=== PATIENT | male | born 1970 | race African-American/Black ===

== ENCOUNTER 2023-12-31 14:14 | Emergency (ER) | payer MEDICAID, OTHER ==
[~2023-12-31] VITALS: Ht 182.9 cm; Wt 97.4 kg
[2023-12-31 15:06] VITALS: BP 138/86; PULSE 67; RESP 16; TEMP 98.2; O2SAT 100
--- NOTE | 2023-12-31 15:06 | ED.PDOC ---
History of Present Illness HPI Comments 53-year-old male patient presents to the clinic for cough and congestion x2 days. Patient reports body aches. Patient reports nausea. Patient reports decreased appetite. Patient denies any fevers. Patient denies any throat pain. Patient denies any ear pain. Patient denies any shortness of breath or diff iculty breathing. Patient is sitting up in chair. Patient appears comfortable. Respirations are even and unlabored Chief Complaint: Flu like Time Seen by MD: 14:44 Reviewed Notes: Nurses Notes, Medications Allergies: Coded Allergies: NO KNOWN ALLERGIES (Unverified , 12/31/23) Home Meds Active Scripts Ibuprofen (Ibuprofen) 600 Mg Tab, 1 TAB PO Q6HP PRN for 30 Days, #120 TAB 0 Refills Prov:KALANI MUÑIZ [facility] 12/31/23 [id number] (Bromphen/Pseudoephedrine 30-2-10 mg/5Ml) 1 Syp Syp, 10 ML PO Q6HP PRN for 10 Days, #400 ML 0 Refills Prov:KALANI MUÑIZ [facility] 12/31/23 Oseltamivir Phosphate (Tamiflu) 75 Mg Cap, 75 MG PO BID for 5 Days, #10 CAP 0 Refills Prov:KALANI MUÑIZ [facility] 12/31/23 Mode of Arrival: Ambulatory Family History Family History: Reviewed,noncontributory to illness Constitutional: denies: chills, diaphoresis, fatigue, fever, malaise, sweats, weakness, others EENTM: denies: blurred vision, double vision, ear bleeding, ear discharge, ear drainage, ear pain, ear ringing, eye pain, eye redness, hearing loss, mouth pain, mouth swelling, nasal discharge, nose bleeding, nose congestion, nose pain, photophobia, tearing, throat pain, throat swelling, voice changes, others Respiratory: reports: cough Cardiovascular: denies: chest pain, dizzy spells, diaphoresis, Dyspnea on exertion, edema, irregular heart beat, left arm pain, lightheadedness, palpitations, PND, syncope, others Gastrointestinal: reports: nausea Genitourinary: denies: burning, dysuria, flank pain, frequency, hematuria, incontinence, penile discharge, penile sore, pain, testicle pain, testicle swelling, urgency, others Neurological: denies: dizziness, fainting, headache, left sided numbness, left sided weakness, numbness, paresthesia, pre-existing deficit, right sided numbness, right sided weakness, seizure, speech problems, tingling, tremors, weakness, others Musculoskeletal: denies: back pain, gout, joint pain, joint swelling, muscle pain, muscle stiffness, neck pain, others Integumetry: denies: bruises, change in color, change in hair/nails, dryness, laceration, lesions, lumps, rash, wounds, others Allergic/Immunocompromised: denies: Difficulty Healing, Frequent Infections, Hives, Itching, others Hematologic/Lymphatic: denies: anemia, blood clots, easy bleeding, easy bruising, swollen glands, others Endocrine: denies: excessive hunger, excessive sweating, excessive thirst, excessive urination, flushing, intolerance to cold, intolerance to heat, unexplained weight gain, unexplained weight loss, others Psychiatric: denies: anxiety, bipolar disorder, depression, hopeless, panic disorder, schizophrenia, sleepless, suicidal, others All Other Systems: Reviewed and Negative Physical Exam General Appearance: No Apparent Distress, Normal HEENT: Normal ENT Inspection, Pharynx Normal, TMs Normal Neck: Full Range of Motion, Non-Tender, Normal, Normal Inspection Respiratory: Chest Non-Tender, Lungs Clear, No Accessory Muscle Use, No Respi ratory Distress, Normal Breath Sounds, Rhonchi (Upper respiratory) Cardiovascular: No Edema, No JVD, No Murmur, No Gallop, Normal Peripheral Pulses, Regular Rate/Rhythm Breast Exam: Deferred Gastrointestinal: No Organomegaly, Non Tender, No Pulsatile Mass, Normal Bowel Sounds, Soft Genitalia: Deferred Pelvic: Deferred Rectal: Deferred Extremities: No calf tenderness, Normal capillary refill, Normal inspection, Normal range of motion, Non-tender, No pedal edema Musculoskeletal : Apperance: Normal Neurologic: Alert, clip on sunglasses inspector II-XII nml as Tested, No Motor Deficits, Normal Affect, Normal Mood, No Sensory Deficits Cerebellar Function: Normal Reflexes: Normal Skin: Dry, Normal Color, Warm Lymphatic: No Adenopathy Was a procedure done? Was a procedure done?: No Differential Dx Considerations may include: upper respiratory infection, Covid, Pneumonia, Bronchitis X-Ray, Labs, Meds, VS Vital Signs Date Time Temp Pulse Resp B/P (MAP) Pulse Ox O2 Delivery O2 Flow Rate FiO2 12/31/23 15:06 67 16 100 Room Air 12/31/23 15:06 98.2 67 16 138/86 (103) 100 98.2 12/31/23 14:20 98.0 86 16 128/108 (115) 100 Lab Test 12/31/23 15:30 Range/Units Influenza Type A Antigen Negative Negative Influenza Type B Antigen Positive Negative SARS-CoV-2 Antigen (Rapid) Negative NEGATIVE X-Ray, Labs, Meds, VS Comment On re-evaluation patient has symptomatic improvement. Patient is stable for discharge at this time. All test results and diagnostic imaging have been interpreted. All diagnostic findings, discharge care, and education instruction provided to the patient. Follow-up with PCP in 2-3 days Patient verbalized understanding, discharge instructions and agrees to treatment plan Vital signs are stable Patient is ambulatory Patient advised of which symptoms necessitate a return visit to the emergency room. Patient to return emergency room for any new worsening symptoms. Patient is aware that the purpose of this visit is for an acute medical emergency requiring emergent stabilization. Chronic conditions, including malignancies have not been ruled out. Patient is instructed to follow up with PCP as directed for continued care and workup. If unable to arrange follow up, patient is to return to the emergency room for reassessment. Patient was given verbal and written discharge instructions and acknowledges understanding Time of 1ST Reevaluation: 15:05 Reevaluation 1ST: Unchanged Patient Education/Counseling: Diagnosis, Treatment, Prognosis Family Education/Counseling: No Family Present Departure 1 Departure Time of Disposition: 16:13 Impression: Primary Impression: Influenza B Disposition: 01 HOME / SELF CARE / HOMELESS Condition: Stable e-Prescriptions Ibuprofen (Ibuprofen) 600 Mg Tab 1 TAB PO Q6HP PRN for 30 Days, #120 TAB 0 Refills Prov: KALANI MUÑIZ [facility] 12/31/23 [id number] (Bromphen/Pseudoephedrine 30-2-10 mg/5Ml) 1 Syp Syp 10 ML PO Q6HP PRN for 10 Days, #400 ML 0 Refills Prov: KALANI MUÑIZ [facility] 12/31/23 Oseltamivir Phosphate (Tamiflu) 75 Mg Cap 75 MG PO BID for 5 Days, #10 CAP 0 Refills Prov: KALANI MUÑIZ [facility] 12/31/23 Critical Care Note Critical Care Time?: No Stability Stability form required: No Heart Score Heart Score: Heart Score Response (Comments) Value History N/A 0 EKG N/A 0 Age N/A 0 Risk Factors N/A 0 Troponin N/A 0 Total 0 KALANI MUÑIZ [facility] Dec 31, 2023 15:06
[2023-12-31 16:10] LABS: COVID19 ANTIGEN SOFIA FIA NEGATIVE (NEGATIVE)
[2023-12-31 16:11] LABS: Rapid Influenza A Negative (Negative)
[2023-12-31 16:13] LABS: Rapid Influenza B Positive (Negative)
[2023-12-31] MEDS ORDERED: OSEL75CA5 PO ×2 (16:16→19:30)
[2023-12-31] MEDS ORDERED: PSEU1SYP6 PO ×2 (16:16→19:30)
[2023-12-31] MEDS ORDERED: IBUP-1454 PO ×2 (16:18→19:30)
== END 2023-12-31 16:26 | disposition home or self-care (01) ==
LOC: ER 14:14
DX: J10.1 Influenza due to other identified influenza virus with other respiratory manifestations (principal); Z20.822 Contact with and (suspected) exposure to COVID-19; Z79.899 Other long term (current) drug therapy
CPT/HCPCS: 36415; 87426; 87804